=== PATIENT | female | born 1955 | race Caucasian/White ===

== ENCOUNTER → 2016-09-22 | Outpatient (CLI) | payer OTHER | LOC: RAD 17:14 | DX: K59.00 Constipation, unspecified (principal) ==

== ENCOUNTER → 2017-05-05 | Outpatient (CLI) | payer OTHER | LOC: MAMMO 13:14 | DX: Z12.31 Encounter for screening mammogram for malignant neoplasm of breast (principal) ==

== ENCOUNTER → 2019-01-09 | Outpatient (CLI) | payer OTHER | END | disposition home or self-care (01) | LOC: US 09:53 | DX: R41.3 Other amnesia (principal); R47.89 Other speech disturbances ==

== ENCOUNTER → 2022-09-16 | Outpatient (CLI) | payer OTHER ==
[2022-09-16 11:16] LABS: BASO % 0.6 % (0.0-1.0); HEMATOCRIT 46.9 % (37.0-47.0); LYMPH # 2.4 10*3/uL (1.3-4.4); LYMPH % 35.5 % (27.0-41.0); MEAN CELL VOLUME 92.1 fl (81.0-99.0); MEAN CORPUSCULAR HGB 30.3 pg (27.0-31.0); MEAN CORPUSCULAR HGB CONC 32.8 g/dl (33.0-37.0); MEAN PLATELET VOLUME 8.9 fl (9.6-12.3); MONO # 0.4 10*3/uL (0.1-1.0); NEUT # 3.9 10*3/uL (2.3-7.9); NEUT % 57.6 % (47.0-73.0); PLATELET COUNT AUTOMATED 308 10*3/uL (130-400); RED BLOOD COUNT 5.09 10*6/uL (4.10-5.10); RED CELL DISTRI WIDTH 12.2 % (0-14.5); WHITE BLOOD COUNT 6.8 10*3/uL (4.8-10.8)
[2022-09-16 11:31] LABS: ALKALINE PHOSPHATASE 102 U/L (46-116); BUN 15 mg/dl (9-23); CHLORIDE 106 mmol/L (98-107); CHOLESTEROL 224 mg/dL (<200); LDL CHOLESTEROL 161 mg/dL (9-159); POTASSIUM 4.3 mmol/L (3.4-5.1); SGPT/ALT 8 U/L (10-49); TOTAL PROTEIN 7.5 gm/dL (6.0-8.0); TRIGLYCERIDES 80 mg/dl (<150)
== END | disposition home or self-care (01) ==
LOC: LAB 10:38
PROVIDERS: ATTEND Nurse Practitioner Family
DX: E78.5 Hyperlipidemia, unspecified (principal); E66.9 Obesity, unspecified; R10.13 Epigastric pain

== ENCOUNTER → 2022-11-04 | Outpatient (CLI) | payer OTHER | END | disposition home or self-care (01) | LOC: LAB 10:51 | PROVIDERS: ATTEND Nurse Practitioner Family | DX: J32.9 Chronic sinusitis, unspecified (principal); E66.9 Obesity, unspecified; R79.89 Other specified abnormal findings of blood chemistry; R10.9 Unspecified abdominal pain ==

== ENCOUNTER → 2022-11-04 | Outpatient (CLI) | payer OTHER | END | disposition home or self-care (01) | LOC: CT 00:07 | PROVIDERS: ATTEND Nurse Practitioner Family | DX: K57.30 Diverticulosis of large intestine without perforation or abscess without bleeding (principal); J98.11 Atelectasis; R10.9 Unspecified abdominal pain; R79.89 Other specified abnormal findings of blood chemistry; J32.9 Chronic sinusitis, unspecified; E66.9 Obesity, unspecified; Z90.49 Acquired absence of other specified parts of digestive tract ==

== ENCOUNTER → 2024-05-12 | Outpatient (CLI) | payer OTHER ==
[2024-05-14 13:05] LABS: ATOPOBIUM VAGINAE Low - 0 Score (.)
== END | disposition home or self-care (01) ==
LOC: RHCWE 17:37 → LAB 17:37
PROVIDERS: ATTEND Nurse Practitioner Family
DX: F41.9 Anxiety disorder, unspecified (principal); N76.0 Acute vaginitis; E78.2 Mixed hyperlipidemia; K21.9 Gastro-esophageal reflux disease without esophagitis

== ENCOUNTER → 2024-09-12 | Outpatient (CLI) | payer OTHER | END | disposition home or self-care (01) | LOC: LAB 10:56 → RAD 10:56 | PROVIDERS: ATTEND Nurse Practitioner Family | DX: J98.11 Atelectasis (principal); R06.2 Wheezing; R06.02 Shortness of breath ==

== ENCOUNTER → 2024-10-11 | Outpatient (CLI) | payer OTHER ==
[~2024-10-11] MED LIST: CLARITIN10 MG PO; FLONASE ALLERG9.9 ML NAS; HYDROXYZINE HCL25 MG PO; OMEPRAZOLE40 MG PO; Technetium Tc 99M Tetrofosmi 0.23 MG KIT IJ SCH
== END | disposition home or self-care (01) ==
LOC: CARD 09-22 07:30
PROVIDERS: ATTEND Internal Medicine Cardiovascular Disease
DX: R07.89 Other chest pain (principal)

== ENCOUNTER → 2024-11-10 | Outpatient (CLI) | payer OTHER ==
[~2024-11-10] MED LIST changes: -Technetium Tc 99M Tetrofosmi 0.23 MG KIT IJ SCH
== END | disposition home or self-care (01) ==
LOC: RAD 02:01
PROVIDERS: ATTEND Nurse Practitioner Family
DX: M85.88 Other specified disorders of bone density and structure, other site (principal); Z13.820 Encounter for screening for osteoporosis; Z78.0 Asymptomatic menopausal state